=== PATIENT | female | born 1980 | race Caucasian/White ===

== ENCOUNTER 2016-07-25 05:13 | Emergency (ER) | payer OTHER ==
[~2016-07-25] VITALS: Ht 170.2 cm; Wt 83.0 kg
[2016-07-25 05:59] LABS: HEMATOCRIT 37.2 % (36.0-46.0); MCH 32.6 PG (29.0-34.0); MCHC 34.7 G/DL (30.0-36.0); MCV 93.9 FL (83-99); MEAN PLAT.VOLUME 9.6 uM^3 (9.5-12.4); PLATELET COUNT 289 K/uL (156-360); RBC DIS.WIDTH-CV 12.4 % (11.8-14.6); RBC DIS.WIDTH-SD 43.3 % (39-53); RED BLOOD COUNT 3.96 M/uL (3.80-5.20); WHITE BLOOD COUNT 7.5 K/uL (4.1-10.2)
[2016-07-25 06:11] LABS: CHLORIDE 106 mEq/L (99-109); POTASSIUM 3.4 mEq/L (3.7-5.4); SODIUM 139 mEq/L (136-147)
[2016-07-25 06:12] LABS: GLUCOSE 97 mg/dL (70-99)
[2016-07-25 06:14] LABS: ANION GAP 10 MEQ/L (2-14)
[2016-07-25 06:16] LABS: D-DIMER ELISA < 0.15 mg/L FEU (< 0.57)
[2016-07-25 06:17] LABS: GFR ESTIMATE (CALCULATED) > 59 mL/min/; UREA NITROGEN (BUN) 17 mg/dL (9-23)
[2016-07-25 06:24] LABS: TROP-I INTERPRETATION NEGATIVE; TROPONIN-I < 0.01 ng/mL (0.0-0.30)
[2016-07-25] MEDS ORDERED: AUGMENTIN875 MG PO (06:54)
[2016-07-25] MEDS ORDERED: VENTOLIN HFA18 GM IH (07:00)
[2016-07-25] MEDS ORDERED: XANAX1 MG PO (07:12)
[2016-07-25] MEDS ORDERED: FLUCONAZOLE100 MG PO (07:12)
[2016-07-25 07:19] VITALS: BP 125/86
== END 2016-07-25 07:26 | disposition home or self-care (01) ==
LOC: EME 05:13
DX: F41.1 Generalized anxiety disorder (principal); J18.9 Pneumonia, unspecified organism; I45.19 Other right bundle-branch block; F17.200 Nicotine dependence, unspecified, uncomplicated
CPT/HCPCS: 71020; 80048; 83735; 84100; 84443; 84484; 85027; 85379; 93005; 99281; 99284; J2060; J7030